=== PATIENT | female | born 1965 | race Caucasian/White ===

== ENCOUNTER 2017-09-02 07:17 | Emergency (ER) | payer SELFPAY ==
[2017-09-02 07:24] VITALS: BP 117/65
--- NOTE | 2017-09-02 08:03 | ER Document Report ---
ED Extremity Problem, Upper - General Chief Complaint: Arm Pain Stated Complaint: RIGHT ARM PAIN Time Seen by Provider: 09/02/17 07:57 Mode of Arrival: Ambulatory Information source: Patient Notes: 52 years old female who was lifting her grandchild 7-month-old last 2 days, presents with right arm pain since this morning. The pain is more so when she flex and extend the elbow. Denies any pain over the shoulders or wrist. Denies any swelling denies any numbness or tingling sensation. Denies any other constitutional symptoms. TRAVEL OUTSIDE OF THE [place] IN LAST 30 DAYS: No - HPI Patient complains to provider of: Pain, Right, Arm. No: Altered sensation, Injury, Swelling, Weakness, Left, Clavicle, Elbow, Forearm, Hand, Wrist, Shoulder, Other Onset: Just prior to arrival Recent injury: Possibly Where: Home, Indoors. No: Neighbor's, [facility], Outdoors, Public place, School, Sports, Work, Other Severity of pain: denies: Mild, Moderate, Severe, Better, Constant, Gone now, Intermittent, Persistent, Still present, Sudden, Worse Arm and Shoulder (Right): 1 - Over the bicep insertion Associated symptoms: denies: None, Back pain, Chest pain/discomfort, Chills, Dizziness, Fainted, Fever, Hurts to breathe, Jaw pain, Nausea, Neck pain, Numbness, Seizure, Short of breath, Sweating, Tingling, Vomiting, Other Exacerbated by: Movement Relieved by: Rest - Related Data Allergies/Adverse Reactions: No Known Allergies Allergy (Unverified 09/02/17 07:19) Past Medical History - General Information source: Patient - Social History Smoking Status: Current Every Day Smoker Chew tobacco use (# tins/day): No Frequency of alcohol use: None Drug Abuse: None Lives with: Family Family History: Reviewed & Not Pertinent Patient has suicidal ideation: No Patient has homicidal ideation: No Renal/ Medical History: Denies: Hx Peritoneal Dialysis Past Surgical History: Reports: Hx Section Review of Systems - Review of Systems Constitutional: denies: No symptoms reported, See HPI, Chills, Diaphoresis, Fever, Malaise, Weakness, Other, Weight gain, Weight loss, Recent illness EENT: denies: No symptoms reported, See HPI, Eye pain, Eye discharge, Blurred vision, Tearing, Double vision, Ear pain, Ear discharge, Nose pain, Nose congestion, Nose discharge, Sinus pressure, Sinus discharge, Throat pain, Difficulty swallowing, Throat swelling, Mouth pain, Mouth swelling, Dental problem, Vertigo, Other Cardiovascular: denies: No symptoms reported, See HPI, Chest pain, Palpitations , Heart racing, Orthopnea, Dyspnea, Syncope, Dizziness, Lightheaded, Edema, Other, Paroxysmal Nocturnal Dysp Respiratory: denies: No symptoms reported, See HPI, Cough, Hurts to breathe, Hemoptysis, Short of breath, Sputum, Stridor, Wheezing, Other Gastrointestinal: denies: No symptoms reported, See HPI, Abdomen distended, Abdominal pain, Diarrhea, Nausea, Vomiting, Constipation, Blood streaked bowels , Poor appetite, Poor fluid intake, Blood in vomit, Black stools, Rectal bleeding, Last bowel movement, Fecal incontinence, Other Genitourinary: denies: No symptoms reported, See HPI, Burning, Dysuria, Discharge, Frequency, Flank pain, Hematuria, Incontinence, Pain, Urgency, Retention, Other Female Genitourinary: denies: No symptoms reported, See HPI, Last menstrual period, , Post menopausal, Heavy/abnormal periods, Irregular period, Vaginal bleeding, Vaginal discharge, Vaginal odor, Painful intercourse, Other Musculoskeletal: See HPI Physical Exam - Vital signs Vitals: Temp Pulse Resp BP Pulse Ox 98.3 F 74 20 117/65 99 09/02/17 07:22 09/02/17 07:22 09/02/17 07:22 09/02/17 07:22 09/02/17 07:22 - Notes Notes: PHYSICAL EXAMINATION: GENERAL: Well-appearing, well-nourished and in no acute distress. HEAD: Atraumatic, normocephalic. EYES: Pupils equal round and reactive to light, extraocular movements intact, conjunctiva are normal. ENT: Nares patent, oropharynx clear without exudates. Moist mucous membranes. NECK: Normal range of motion, supple without lymphadenopathy LUNGS: Breath sounds clear to auscultation bilaterally and equal. No wheezes rales or rhonchi. HEART: Regular rate and rhythm without murmurs ABDOMEN: Soft, nontender, nondistended abdomen. No guarding, no rebound. No masses appreciated. Female : deferred Musculoskeletal: Right arm shoulder, range of motion was within normal limits for flexion extension abduction abduction and rotation. No swelling or tenderness noted. Right elbow able to flex and extend pronate and supinate without any discomfort but at the insertion of the biceps sharp tenderness were noted. She was able to flex against resistant to. Wrist has no injuries. Normal range of motion. Neurovascular function over the right upper extremity within normal limits. NEUROLOGICAL: Cranial nerves grossly intact. Normal speech, normal gait. Normal sensory, motor exams PSYCH: Normal mood, normal affect. SKIN: Warm, Dry, normal turgor, no rashes or lesions noted. Course - Vital Signs Vital signs: Temp Pulse Resp BP Pulse Ox 98.3 F 74 20 117/65 99 09/02/17 07:22 09/02/17 07:22 09/02/17 07:22 09/02/17 07:22 09/02/17 07:22 Discharge - Discharge Clinical Impression: Sprain of right upper arm Qualifiers: Encounter type: initial encounter Qualified Code(s): S43.401A - Unspecified sprain of right shoulder joint, initial encounter Condition: Fair Disposition: HOME, SELF-CARE Instructions: Sprain ([facility]) Prescriptions: Ketorolac Tromethamine [Toradol 10 mg Tablet] 10 mg PO Q6HP PRN #14 tablet PRN Reason: Baclofen [Baclofen 10 mg Tablet] 10 mg PO TID PRN #30 tablet PRN Reason:
== END 2017-09-02 08:16 | disposition home or self-care (01) ==
LOC: ER 07:17
DX: S43.401A Unspecified sprain of right shoulder joint, initial encounter (principal); M79.601 Pain in right arm; F17.200 Nicotine dependence, unspecified, uncomplicated; X50.9XXA Other and unspecified overexertion or strenuous movements or postures, initial encounter
CPT/HCPCS: 99283